=== PATIENT | female | born 1965 | race Caucasian/White ===

== ENCOUNTER 2025-06-08 23:13 | Inpatient (IN) | payer OTHER, SELFPAY ==
[2025-06-08 18:31] VITALS: BP 160/89
[2025-06-08 18:55] LABS: Hematocrit 44.2 % (37.0-47.0); Hemoglobin 15.1 g/dL (12.0-16.0); Mean Corp Hgb Conc. 34.2 g/dL (33.0-37.0); Mean Corpuscular Volume 85.8 fL (81.0-99.0); Nucleated Red Blood Cells % 0 %; Platelet Count 319 10^3/uL (130-400); Red Cell Dist. Width 12.0 % (11.5-14.5)
[2025-06-08 19:14] LABS: ALT (SGPT) 729 U/L (0-35); AST (SGOT) 288 U/L (14-36); Albumin 4.9 g/dl (3.5-5.0); Alkaline Phosphatase 277 U/L (38-126); Blood Urea Nitrogen 21 mg/dl (7-17); Calcium 9.7 mg/dl (8.4-10.2); Carbon Dioxide 29 mmol/L (22-30); Chloride 100 mmol/L (98-107); Glucose 124 mg/dl (70-99); Lipase 244 U/L (23-300); Potassium 4.0 mmol/L (3.5-5.1); Sodium 139 mmol/L (135-145); Total Protein 7.8 g/dl (6.3-8.2); eGFR > 60.00
[2025-06-08 19:24] LABS: Urine Squamous Cell >30 /LPF (Few); Urine White Cell 30-40 /HPF (0-5)
[2025-06-08 19:28] LABS: Urine Character Slightly Cloudy (Clear)
[2025-06-08 20:01] VITALS: BMI 30.3
--- NOTE | 2025-06-08 20:11 | ED.GENMED ---
History of Present Illness
<Mady Cowart PA-C - Last Filed: 06/09/25 01:25>
General
Chief Complaint: Abdominal Symptoms
Source: patient
Exam Limitations: none
Time Seen by Provider: 06/08/25 19:54
History of Present Illness
History of Present Illness:
60yoF with a history of prediabetes presenting for evaluation of abdominal pain. She reports pain in her right upper quadrant for the past 2 days which radiates to the right flank. Pain worsens after eating. Pain is described as sharp at times
which alternates to cramping. She has tried Tylenol without much relief. She is also experiencing nausea and vomiting. She has vomited about 4-5 times so far today. No history of similar pains in the past. Only other symptom is constipation.
She denies any fevers, chills, hematemesis, chest pain, shortness of breath, dysuria. Patient started taking Zepbound and started a carnivore diet several months ago. Prior abdominal surgeries include multiple section, a hysterectomy, and
an abdominoplasty.
Past History
<Mady Cowart PA-C - Last Filed: 06/09/25 01:25>
Past History
ED Past Medical History: Psychiatric (anxiety)
ED Past Surgical History: and Other (abdominplasty)
Social History
Tobacco: Non-smoker
Phy Exam
<Mady Cowart PA-C - Last Filed: 06/09/25 01:25>
General Physical Exam
General Presentation: well appearing and no apparent distress
General Skin: warm and dry
General Habitus: normal
General Mental: alert
ENT Exam
ENT Exam: normocephalic
Cardiovascular Exam
Cardiovascular Exam: regular rate/rhythm
Pulmonary Exam
Pulmonary Exam: lungs clear, no respiratory distress, no rales, no crackles, no rhonchi and no wheezing
Gastrointestinal Exam
Gastrointestinal Exam: soft, non distended and other (+Focal tenderness in RUQ. Abdomen soft. No rebound or guarding.)
Neurological Exam
Neurological Exam: alert
[place] Coma Scale
Eye Opening: Spontaneous
Verbal Response: Oriented
Motor Response: Obeys Commands
GCS Total Score: 15
Skin Exam
Skin Exam: normal color and warm/dry
Psychiatric Exam
Psychiatric Exam: normal mood/affect
Course
<Mady Cowart PA-C - Last Filed: 06/09/25 01:25>
Orders/Labs/Results
Orders:
Orders
06/08/25 18:44
Complete Blood Count/With Diff Urgent
Comprehensive Metabolic Panel Urgent
Lipase Urgent
Urinalysis Reflex To Culture Urgent
Date Specimen was Collected: 06/08/25
Time Specimen was Collected: 18:35
Urine Microscopic Reflex Cult Urgent
Urine Culture Urgent
BE Source: U
Specimen Description:
Date Specimen was Collected: 06/08/25
Time Specimen was Collected: 18:35
06/08/25 20:10
0.9% Sodium Chloride 1000 ml [Nss] 1,000 ml IV BOLUS
HYDROmorphone [Dilaudid] 0.5 mg IV NOW STA
Ondansetron Injectable [Zofran] 4 mg IV NOW STA
US Abdomen Complete/Upper Urgent
Comment:
Reason For Exam: RUQ pain, transaminitis
06/08/25 20:17
Prothrombin Time Urgent
06/08/25 22:16
Piperacillin/Tazo 4.5 Gram [Zosyn] 4.5 gram in 100 ml IV NOW
06/08/25 22:52
Admit/Transfer Patient As Directed
Co-Sign Provider:
Level of Care: Inpatient admission
Assign to:: Medical/Surgical
Physician / Group: andrey
Diagnosis: choledocholithiasis
Reason for Hospitalization: choledocholithiasis
Expected length of stay greater than two midnights?: Yes
ELOS- Estimated Length of Stay in days: 3
I certify the patient meets the requirements for IP care: Yes
Code Status As Directed
Resuscitation Status: Full Code
PRN Pain Medication Management As Directed
May give lesser potent ordered pain med per pt: Yes
preference::
Protocol:: Medication orders for pain may be administered in a
manner that supports deferring to patient preference
when the pt is:
- Requesting an ordered lesser potent pain medication.
Least to most potent pain medications are defined
as: acetaminophen < NSAID < tramadol < opioids
(morphine, oxycodone, hydromorphone).
- Requesting a lesser dose of the same medication IF
ORDERED.
- Requesting a less intrusive route of administration
if both routes are prescribed by the provider (PO <
IV).
06/08/25 22:57
Consult Notification Routine
Specialty to Notify: Gastroenterology
GASTROINTESTINAL CONSULT Routine
Consulting Provider: Salome Delgado
Was physician already notified: No
Reason for consult: choledochlohtiasis
SURGICAL CONSULT Routine
Consulting Provider: Ravin Torres
Was physician already notified: No
Reason for consult: choledocholithiasis
06/08/25 22:58
Consult Notification Routine
Specialty to Notify: Surgical
06/08/25 23:57
0.9% Sodium Chloride 1000 ml [Nss] 1,000 ml IV 100 mls/hr
HYDROmorphone [Dilaudid] 0.5 mg IV Q4HPRN PRN
Ondansetron Injectable [Zofran] 4 mg IV Q6HPRN PRN
06/08/25 23:57
EKG [Electrocardiogram (*1)] Routine
Reason for Study: QTc Monitoring
Activity As Directed
Activity Level: As Tolerated
Vital Signs As Directed
Frequency: Per unit guidelines
DX Deep Vein Thrombosis Video Routine
06/09/25 Breakfast
NPO
Allow oral meds: Yes
Allow clear liquids: No
Complete Blood Count/No Diff IN AM
Comprehensive Metabolic Panel IN AM
06/09/25 18:00
Enoxaparin Sodium [Lovenox] 40 mg SC QPM
06/10/25 04:00
Piperacillin/Tazo 3.375 Gram [Zosyn] 3.375 gram in 50 ml IV Q6H
06/10/25 06:00
Complete Blood Count/No Diff IN AM
Comprehensive Metabolic Panel IN AM
06/11/25 06:00
Complete Blood Count/No Diff IN AM
Comprehensive Metabolic Panel IN AM
06/12/25 06:00
Complete Blood Count/No Diff IN AM
Comprehensive Metabolic Panel IN AM
06/13/25 06:00
Comprehensive Metabolic Panel IN AM
Abnormal Lab Results
06/08/25
18:44
BUN 21 H mg/dl
(7-17)
Glucose 124 H mg/dl
(70-99)
Total Bilirubin 2.0 H mg/dl
(0.2-1.3)
AST 288 H U/L
(14-36)
ALT 729 H* U/L
(0-35)
Alkaline Phosphatase 277 H U/L
(38-126)
Urine Ketones 3+ A
(Negative)
Ur Occult Blood Reflex 2+ A
(Negative)
Leukocyte Esterase Rfl 3+ A
(Negative)
Urine RBC 7-10 A /HPF
(0-2)
Urine WBC (Reflex) 30-40 A /HPF
(0-5)
Urine Bacteria (Reflex) Few A
(Negative)
Urine Albumin (Reflex) 2+ A
(Neg - Trace)
06/08/25 18:44
06/08/25 18:44
Vital Signs
Initial and Last Documented VS:
Initial Vital Signs
Temp Pulse Resp BP Pulse Ox
97.6 F 83 20 160/89 99
06/08/25 18:31 06/08/25 18:31 06/08/25 18:31 06/08/25 18:31 06/08/25 18:31
Last Documented Vital Signs
Temp Pulse Resp BP Pulse Ox
98.2 F 74 16 118/66 95
06/09/25 00:05 06/09/25 00:05 06/09/25 00:05 06/09/25 00:05 06/09/25 00:05
<Markos Long, DO - Last Filed: 06/08/25 21:58>
Orders/Labs/Results
Orders:
Orders
06/08/25 18:44
Complete Blood Count/With Diff Urgent
Comprehensive Metabolic Panel Urgent
Lipase Urgent
Urinalysis Reflex To Culture Urgent
Date Specimen was Collected: 06/08/25
Time Specimen was Collected: 18:35
Urine Microscopic Reflex Cult Urgent
Urine Culture Urgent
BE Source: U
Specimen Description:
Date Specimen was Collected: 06/08/25
Time Specimen was Collected: 18:35
06/08/25 20:10
0.9% Sodium Chloride 1000 ml [Nss] 1,000 ml IV BOLUS
HYDROmorphone [Dilaudid] 0.5 mg IV NOW STA
Ondansetron Injectable [Zofran] 4 mg IV NOW STA
US Abdomen Complete/Upper Urgent
Comment:
Reason For Exam: RUQ pain, transaminitis
06/08/25 20:17
Prothrombin Time Urgent
06/08/25 22:16
Piperacillin/Tazo 4.5 Gram [Zosyn] 4.5 gram in 100 ml IV NOW
06/08/25 22:52
Admit/Transfer Patient As Directed
Co-Sign Provider:
Level of Care: Inpatient admission
Assign to:: Medical/Surgical
Physician / Group: andrey
Diagnosis: choledocholithiasis
Reason for Hospitalization: choledocholithiasis
Expected length of stay greater than two midnights?: Yes
ELOS- Estimated Length of Stay in days: 3
I certify the patient meets the requirements for IP care: Yes
Code Status As Directed
Resuscitation Status: Full Code
PRN Pain Medication Management As Directed
May give lesser potent ordered pain med per pt: Yes
preference::
Protocol:: Medication orders for pain may be administered in a
manner that supports deferring to patient preference
when the pt is:
- Requesting an ordered lesser potent pain medication.
Least to most potent pain medications are defined
as: acetaminophen < NSAID < tramadol < opioids
(morphine, oxycodone, hydromorphone).
- Requesting a lesser dose of the same medication IF
ORDERED.
- Requesting a less intrusive route of administration
if both routes are prescribed by the provider (PO <
IV).
06/08/25 22:57
Consult Notification Routine
Specialty to Notify: Gastroenterology
GASTROINTESTINAL CONSULT Routine
Consulting Provider: Salome Delgado
Was physician already notified: No
Reason for consult: choledochlohtiasis
SURGICAL CONSULT Routine
Consulting Provider: Ravin Torres
Was physician already notified: No
Reason for consult: choledocholithiasis
06/08/25 22:58
Consult Notification Routine
Specialty to Notify: Surgical
06/08/25 23:57
0.9% Sodium Chloride 1000 ml [Nss] 1,000 ml IV 100 mls/hr
HYDROmorphone [Dilaudid] 0.5 mg IV Q4HPRN PRN
Ondansetron Injectable [Zofran] 4 mg IV Q6HPRN PRN
06/08/25 23:57
EKG [Electrocardiogram (*1)] Routine
Reason for Study: QTc Monitoring
Activity As Directed
Activity Level: As Tolerated
Vital Signs As Directed
Frequency: Per unit guidelines
DX Deep Vein Thrombosis Video Routine
06/09/25 Breakfast
NPO
Allow oral meds: Yes
Allow clear liquids: No
Complete Blood Count/No Diff IN AM
Comprehensive Metabolic Panel IN AM
06/09/25 18:00
Enoxaparin Sodium [Lovenox] 40 mg SC QPM
06/10/25 04:00
Piperacillin/Tazo 3.375 Gram [Zosyn] 3.375 gram in 50 ml IV Q6H
06/10/25 06:00
Complete Blood Count/No Diff IN AM
Comprehensive Metabolic Panel IN AM
06/11/25 06:00
Complete Blood Count/No Diff IN AM
Comprehensive Metabolic Panel IN AM
06/12/25 06:00
Complete Blood Count/No Diff IN AM
Comprehensive Metabolic Panel IN AM
06/13/25 06:00
Comprehensive Metabolic Panel IN AM
Abnormal Lab Results
06/08/25
18:44
BUN 21 H mg/dl
(7-17)
Glucose 124 H mg/dl
(70-99)
Total Bilirubin 2.0 H mg/dl
(0.2-1.3)
AST 288 H U/L
(14-36)
ALT 729 H* U/L
(0-35)
Alkaline Phosphatase 277 H U/L
(38-126)
Urine Ketones 3+ A
(Negative)
Ur Occult Blood Reflex 2+ A
(Negative)
Leukocyte Esterase Rfl 3+ A
(Negative)
Urine RBC 7-10 A /HPF
(0-2)
Urine WBC (Reflex) 30-40 A /HPF
(0-5)
Urine Bacteria (Reflex) Few A
(Negative)
Urine Albumin (Reflex) 2+ A
(Neg - Trace)
06/08/25 18:44
06/08/25 18:44
Vital Signs
Initial and Last Documented VS:
Initial Vital Signs
Temp Pulse Resp BP Pulse Ox
97.6 F 83 20 160/89 99
06/08/25 18:31 06/08/25 18:31 06/08/25 18:31 06/08/25 18:31 06/08/25 18:31
Last Documented Vital Signs
Temp Pulse Resp BP Pulse Ox
98.2 F 74 16 118/66 95
06/09/25 00:05 06/09/25 00:05 06/09/25 00:05 06/09/25 00:05 06/09/25 00:05
Claritalt;Mady Cowart PA-C - Last Filed: 06/09/25 01:25>
MDM/Problems Addressed
Differential Diagnosis Includes:
60yoF here with RUQ pain x 2 days. Radiates to R flank. Associated with n/v. Worse after eating. She is well-appearing in no distress. She is hypertensive in triage with otherwise stable vital signs. There is focal tenderness in the right upper
quadrant on exam without signs of peritonitis. Differential diagnosis includes but is not limited to: Biliary colic, cholecystitis, pancreatitis
Initial ED plan: Workup initiated in triage. Significant transaminitis noted with AST 288, ALT 729, and total bilirubin of 2.0. Lipase and white count within normal limits. UA with 30-40 WBCs although >30/LPF presenting suggesting contaminated
sample. Upper abdominal ultrasound ordered. IV Dilaudid, Zofran, and fluid bolus for symptoms.
<Mady Cowart PA-C - Last Filed: 06/09/25 01:25>
*Pulse Oximetry
SaO2: 99
Patient hypoxic: no
*Critical Care Note
Total Time (30-74mins, 75-104mins- exclusive of procedures): Not Applicable
<Mady Cowart PA-C - Last Filed: 06/09/25 01:25>
Update Note
Update Note:
Ultrasound shows severe intrahepatic and extrahepatic biliary dilatation with cholelithiasis and gallbladder distention. Presentation concerning for choledocholithiasis. IV Zosyn ordered and patient admitted for further management.
ED Attending Note
<Mady Cowart PA-C - Last Filed: 06/09/25 01:25>
-
Portions of this chart may have been created with voice recognition software.� Occasional wrong word or��sound alike� substitutions may have occurred due to the inherent limitations of voice recognition software.
<Markos Long DO - Last Filed: 06/08/25 21:58>
ED Attending Note
Patient seen and examined by attending physician: Yes
I performed the substantive portion of visit, reviewed & personally made and approve the management plan that is documented in note by myself or ERNESTINA.: Yes
ED Attending Note:
Seen with PA examined independently 60-year-old female on a GLP abdominal pain nausea vomiting LFTs looks like gallstones on her ultrasound lipase noted
Discharge Plan
Departure
Patient Disposition: Admit
Date of Disposition: 06/08/25
Time of Disposition: 22:18
Presentation/result/management discussed w/ accepting MD/DO: Hospitalist
Discharge Problem:
Cholelithiasis, Dilation of biliary tract, Transaminitis
Interventions
Interventions:
*Risk Screen - Suicide Last Done: 06/09/25 00:04
*General Assessment Last Done: 06/08/25 18:31
*Neglect/Abuse Screening Last Done: 06/08/25 18:31
*ED- Fall Risk Assessment Last Done: 06/08/25 20:01
*ED COVID-19 Vaccine History Last Done: 06/09/25 00:04
*ED Influenza Vaccine History Last Done: 06/08/25 20:01
*Nursing Disposition Last Done: 06/08/25 23:50
VR-Opcrsq-Burzbfrlne Assessment Last Done: 06/08/25 20:01
ED-Female Genitourinary Assessment Last Done: 06/08/25 20:01
Discharge Date and Time
Discharge Date/Time: 06/08/25 23:51
[2025-06-08] MEDS: NSS 1000 IV (20:20)
[2025-06-08] MEDS: ZOFRAN 4 MG IV (20:21)
[2025-06-08] MEDS: DILAUDID 0.5 MG IV (20:22)
[2025-06-08 20:47] LABS: INR 1.05; PT 14.0 Sec (11.4-14.6)
[2025-06-08] MEDS: ZOSYN 100 IV (22:21)
--- NOTE | 2025-06-08 22:35 | HPS.HSE ---
Addendum entered and electronically signed by Sri Camara MD 06/08/25 23:15:
This is an addendum to H&P written by Elvira Bailey on 06/08/2025. �Patient seen and examined independently with EMERGENCY DEPARTMENT.
60-year-old female past medical history of prediabetes, anxiety, obesity, presenting for abdominal pain right upper quadrant for 2 days radiating to right flank worse after eating. �Also nausea and vomiting and constipation. �No fevers or chills.
No bowel movement in 1 week not abnormal for her.�
Vital signs show blood pressure 160.
Labs show AST up to 200s, ALT 700s, bilirubin of 2.
Abdominal ultrasound shows severe intrahepatic and extrahepatic biliary dilatation likely secondary to obstructing choledocholithiasis. �There is cholelithiasis, gallbladder distention, mild diffuse gallbladder wall thickening. �There is moderate to
severe increasing echogenicity throughout the liver suggesting diffuse liver disease probably hepatic steatosis.
Patient with acute choledocholithiasis. �N.p.o., IV fluids, Zosyn, Zofran/Dilaudid, GI, general surgery consulted.
Original Note:
Family Physician
-
Family Physician: Jesus Manuel Thompson
Chief Complaint
-
abdominal pain
History of Present Illness
60yoF with a history of prediabetes presenting for evaluation of abdominal pain She reports pain in her right upper quadrant radiating to the back since Sunday. the pain was after eating. she was also vomiting after eating. today the pain was
constant and she was vomiting.she was taking Tylenol with no relief in her symptoms. she has issues with constipation. she does not remember last time she moved her bowels. she can go a week without moving bowels. denied RAYMUNDO,dizzy or syncope. denied
fever, chest pain, sob.denied dysuria or hematuria.
patient was on Ozempic for 8 months and changed to Zepbound for past three months. stated 15lbs weight loss since February.
patient received a dose of Dilaudid, Zofran and Zosyn in ER. admitting for further management.
Medical History
Past Medical History
Past Medical History: Reports Other
Additional Past Medical History:
pre DM
Past Surgical History: Reports Other
Additional Past Surgical History:
hyxterectomy
Social History
Tobacco: Smoker
Alcohol: None
Drug: None
Personal:
Living: With Family
Family History
Family History: Not pertinent
Allergies / Home Medications
Allergies reflects when Allergies were last updated in [facility].
Home Medications with original date entered in [facility]
Allergy/Medication List:
Allergies
Allergy/AdvReac Type Severity Reaction Status Date / Time
No Known Allergies Allergy Verified 06/08/25 18:35
Home Medications
norethindrone acetate 5 mg tablet (Aygestin) 10 mg (2 x 5 mg) PO DAILY ##14 09/21/21
Review of Systems
-
Constitutional: Reports No Symptoms
EENT: Reports No Symptoms
Respiratory: Reports No Symptoms
Cardiac: Reports No Symptoms
Abdomen/GI: Reports Abdominal Pain, Nausea, Vomiting and Constipated
: Reports No Symptoms
Musculoskeletal: Reports No Symptoms
Skin: Reports No Symptoms
Neurological: Reports No Symptoms
Endocrine: Reports No Symptoms
Hematologic/Lymphatic: Reports No Symptoms
Psych: Reports No Symptoms
Physical Exam
Vital Signs
Vital Signs
Temp Pulse Resp BP Pulse Ox
97.6 F 83 20 160/89 99
06/08/25 18:31 06/08/25 18:31 06/08/25 18:31 06/08/25 18:31 06/08/25 20:12
Physical Exam
General: Well Developed, Well Nourished and No Apparent Distress
HEENT: NormoCephalic, Moist mucous membranes and Atraumatic
Respiratory: Clear
Cardiac: S1/S2 and Regular Rhythm; No Murmur or Rub
GI: Soft, Non Tender, Non Distended and Normal Bowel Sounds; No Organomegaly
Rectal: Deferred by Provider
Musculoskeletal: No Clubbing, No Cyanosis and No Edema
Skin: No Rash
Neuro: AO x 3 and Nonfocal/grossly intact
Psych: Calm
Laboratory Results
-
06/08/25 18:44
06/08/25 18:44
Laboratory Results
PT 14.0 Sec (11.4-14.6) 06/08/25 20:17
INR 1.05 06/08/25 20:17
Total Bilirubin 2.0 mg/dl (0.2-1.3) H 06/08/25 18:44
AST 288 U/L (14-36) H 06/08/25 18:44
ALT 729 U/L (0-35) H* 06/08/25 18:44
Alkaline Phosphatase 277 U/L (38-126) H 06/08/25 18:44
Lipase 244 U/L (23-300) 06/08/25 18:44
Data Reviewed
-
CT Scan: Report Reviewed by me
Lab Data: Labs Reviewed by me
Impression/Plan
-
#suspect choledocholithiasis
-ast 288,alt 729, Tbili 2.0
-US with the impression of SEVERE INTRAHEPATIC and EXTRAHEPATIC BILIARY DILATATION which is likely secondary to obstructing choledocholithiasis.
2. CHOLELITHIASIS, gallbladder distention, and mild diffuse gallbladder wall thickening.
3. Moderate to severely increased echogenicity throughout the liver suggesting diffuse liver disease (probably diffuse hepatic steatosis).
4. Mild chronic bilateral renal disease.
-iv Zosyn
-keep NPO
-Dilaudid prn for pain, Zofran prn for n/v
-GI and surgery consulted
#Prediabetes
#DVT prophylaxis
-Lovenox
#CODE status
-full code
-
[2025-06-09] VITALS (10 sets, daily range): BP systolic 87–134; BP diastolic 57–86; BMI 30.5
--- NOTE | 2025-06-09 | PTCARENOTE ---
Received patient from ED. pt able to ambulate from stretcher to bed. patient assessed and vital signs obtained. See flowsheets. patient AOx3, call salguero within reach, plan of care reviewed. PRN pain medicine given as ordered, see MAR.
[2025-06-09] MEDS: NSS 1000 IV ×3 (00:18→22:59)
[2025-06-09] MEDS: DILAUDID 0.5 MG IV ×5 (00:19→23:44)
--- NOTE | 2025-06-09 08:06 | CON.GI ---
Addendum entered and electronically signed by Shila Thomas DO 06/09/25 11:42:
The patient was seen and examined by me independently in collaboration with the nurse practitioner.
Past medical history/social history/medications/allergies/family history reviewed.
Lab data and imaging data reviewed.
Briefly, 60 y.o. female hx pmhx hysterectomy, history of ozempic use now on zepbound admitted with abdominal pain found to have elevated LFTs, Tbili 2, AST 288, ALT 729, alk phos 277, lipase 244. Abdominal US shows cholelithiasis, GB wall thickening
and distension, fatty liver and intrahepatic and extrahepatic biliary ductal dilation w/ CBD dilation of 1.0 cm.
Currently, patient is asymptomatic, abdominal pain has resolved.
A/P: Symptomatic cholelithiasis c/b choledocholithiasis
-NPO for EUS/ERCP with Dr. Durán
-c/w Zosyn
-IVF
-Surgery following, eventual cholecystectomy following EUS/ERCP, timing TBD
Original Note:
Consultation
-
Date/Time Consultation Requested: 06/08/25 2250
Date/Time Consultation Performed: 06/09/25 0800
Requesting Provider: YEIMY Edwards
Performing Provider: YEIMY Cardona, Maribell Thomas DO
Reason for Consultation: abdominal pain increased LFT's
Medical History
Chief Complaint / HPI
Chief Complaint: abdominal pain
History of Present Illness:
Pt is a 60yo with hx pre DM, , tummy tuck, hysterectomy with prior Oxempic use for 8 month then change to Zepound with 15 lbs wt loss since February presents with onset of abdominal pain. On admission noted with bili 2, AST 288, ALT 729, alk
phos 277 and lipase 244. US with SEVERE INTRAHEPATIC and EXTRAHEPATIC BILIARY DILATATION which is likely secondary to obstructing choledocholithiasis. CHOLELITHIASIS, gallbladder distention, and mild diffuse gallbladder wall thickening. Moderate
to severely increased echogenicity throughout the liver suggesting diffuse liver disease (probably diffuse hepatic steatosis). Mild chronic bilateral renal disease.
In review with patient no hx pain in past. She began with symptoms on Sunday and progressed to 8/10 on 06/08. She is now with some improvement with pain meds. Pain is right upper abdomen. She also admits to nausea with vomiting and denies
diarrhea, constipation, blood or black in stools. No change in urine or stool color. No anticoagulation or NSAID use.
Past Medical History
Past Surgical History: and Other (hysterectomy, tummy tuck)
Social History
Tobacco: Former Smoker (quit 10 years ago )
Alcohol: Former (former social weekend ETOH )
Drug: None
Personal:
Living: With Family
Employment: Employed
Family History
Family History: Other (no family hx GI issues )
Allergies / Home Medications
Allergy/AdvReac Type Severity Reaction Status Date / Time
No Known Allergies Allergy Verified 06/08/25 18:35
�Medication �Instructions �Recorded
norethindrone acetate 5 mg tablet 10 mg (2 x 5 mg) PO DAILY ##14 09/21/21
(Aygestin)
Review of Systems
-
History Source: Patient
Constitutional: Reports Weight Loss (15 lbs with Zepbound)
EENT: Reports No Symptoms
Respiratory: Reports No Symptoms
Cardiac: Reports No Symptoms
Abdomen/GI: Reports Abdominal Pain, Nausea and Vomiting
: Reports No Symptoms
Musculoskeletal: Reports No Symptoms
Skin: Reports No Symptoms
Neurological: Reports Headache
Endocrine: Reports No Symptoms
Hematologic/Lymphatic: Reports No Symptoms
Vital Signs
Temp Pulse Resp BP Pulse Ox
98.2 F 74 16 118/66 95
06/09/25 00:05 06/09/25 00:05 06/09/25 00:05 06/09/25 00:05 06/09/25 00:05
Physical Exam
Exam
General: Well Developed, Well Nourished and No Apparent Distress
HEENT: Normocephalic, Anicteric and Moist Mucous Membranes
Respiratory: Clear
Cardiac: Regular Rhythm
GI: Soft, Non Distended and Tender (RUQ)
Musculoskeletal: No Clubbing and No Cyanosis
Skin: Warm and Dry
Neuro: Awake, Alert and AO x 3
Psych: Calm
Results
WBC 7.8 10^3/uL (4.8-10.8) 06/08/25:
Hgb 15.1 g/dL (12.0-16.0) 06/08/25:
Hct 44.2 % (37.0-47.0) 06/08/25:
MCV 85.8 fL (81.0-99.0) 06/08/25:
Plt Count 319 10^3/uL (130-400) 06/08/25:
Absolute Neuts (auto) 5.6 10^3/uL (1.4-6.5) 06/08/25:
PT 14.0 Sec (11.4-14.6) 06/08/25:
INR 1.05 06/08/25:17
Sodium 139 mmol/L (135-145) 06/08/25:
Potassium 4.0 mmol/L (3.5-5.1) 06/08/25:
Chloride 100 mmol/L (98-107) 06/08/25:
Carbon Dioxide 29 mmol/L (22-30) 06/08/25:
BUN 21 mg/dl (7-17) H 06/08/25
Creatinine 1.0 mg/dL (0.6-1.0) 06/08/25:
Calcium 9.7 mg/dl (8.4-10.2) 06/08/25:
Total Bilirubin 2.0 mg/dl (0.2-1.3) H 10/20/25 18:44
AST 288 U/L (14-36) H 06/08/25 18:44
ALT 729 U/L (0-35) H* 06/08/25 18:44
Alkaline Phosphatase 277 U/L (38-126) H 06/08/25 18:44
Lipase 244 U/L (23-300) 06/08/25 18:44
Diagnostic Image Results:
06/08- US abdomen
1. SEVERE INTRAHEPATIC and EXTRAHEPATIC BILIARY DILATATION which is likely secondary to obstructing choledocholithiasis.
2. CHOLELITHIASIS, gallbladder distention, and mild diffuse gallbladder wall thickening.
3. Moderate to severely increased echogenicity throughout the liver suggesting diffuse liver disease (probably diffuse hepatic steatosis).
4. Mild chronic bilateral renal disease.
Prior GI Procedures:
EGD: none
Colonoscopy: 2 years ago recalls normal
Assessment / Plan
-
Pt is a 60yo with hx pre DM, , tummy tuck, hysterectomy with prior Oxempic use for 8 month then change to Zepound with 15 lbs wt loss since February presents with onset of abdominal pain. On admission noted with bili 2, AST 288, ALT 729, alk
phos 277 and lipase 244. US with SEVERE INTRAHEPATIC and EXTRAHEPATIC BILIARY DILATATION which is likely secondary to obstructing choledocholithiasis. CHOLELITHIASIS, gallbladder distention, and mild diffuse gallbladder wall thickening. Moderate
to severely increased echogenicity throughout the liver suggesting diffuse liver disease (probably diffuse hepatic steatosis). Mild chronic bilateral renal disease. In review with patient no hx pain in past. She began with symptoms on Sunday
and progressed to 03/29 on 06/08. She is now with some improvement with pain meds. Pain is right upper abdomen. She also admits to nausea with vomiting. No anticoagulation or NSAID use.
-abdominal pain with increased LFT's
-US concern for likely choledocholithiasis
-cholelithiasis , GB distention and thickening
-cholelithiasis
-recent Ozempic then Zepbound use
other med problems:
pre DM, , tummy tuck, hysterectomy
fatty liver per imaging
PLAN:
Etiology of symptoms related to CBD stone vs other
plan for EUS +/- ERCP today - reviewed risk/benefit with patient agreeable to proceed
NPO
last Zepound 1 week ago
trend labs
for surgical eval
hold lovenox and add compression stocking
currently on antibiotics
OP follow up for fatty liver
-
-
Thank you for consultation and allowing me to participate in the patient's care. Please call the information assurance analyst GI physician during the after hours with any questions or concerns.
[2025-06-09 08:10] LABS: ALT (SGPT) 584 U/L (0-35); AST (SGOT) 268 U/L (14-36); Albumin 3.5 g/dl (3.5-5.0); Alkaline Phosphatase 201 U/L (38-126); Blood Urea Nitrogen 14 mg/dl (7-17); Calcium 8.6 mg/dl (8.4-10.2); Carbon Dioxide 28 mmol/L (22-30); Chloride 106 mmol/L (98-107); Estimated Creatinine Clearance 75 ml/min; Glucose 88 mg/dl (70-99); Potassium 3.7 mmol/L (3.5-5.1); Sodium 135 mmol/L (135-145); Total Protein 6.0 g/dl (6.3-8.2); eGFR > 60.00
--- NOTE | 2025-06-09 08:11 | W.PN.HOSP.TC ---
Today's Communication/Plan
-
NPO for ERCP/EUS
cont pain control
monitor LFTs
cont abx
Assessment / Plan
Assessment / Plan
Physical Exam
General: No acute distress, appears comfortable at this time
HEENT: NormoCephalic, Moist mucous membranes and Atraumatic
Respiratory: Clear
Cardiac: S1/S2 and Regular Rhythm; No Murmur or Rub
GI: Soft, Non Tender, Non Distended and Normal Bowel Sounds; No Organomegaly
Musculoskeletal: No Clubbing, No Cyanosis and No Edema
Skin: No Rash
Neuro: AO x 3 conversant coherent
Psych: Calm
60F prediabetes obesity p/w severe abd pain RUQ radiating to back started after eating with associate nausea vomiting. Abd US concerning for biliary obstruction Cholelithiasis.
#acute biliary obstruction choledocholithiasis
-transaminitis improving
-US with the impression of SEVERE INTRAHEPATIC and EXTRAHEPATIC BILIARY DILATATION which is likely secondary to obstructing choledocholithiasis.
2. CHOLELITHIASIS, gallbladder distention, and mild diffuse gallbladder wall thickening.
3. Moderate to severely increased echogenicity throughout the liver suggesting diffuse liver disease (probably diffuse hepatic steatosis).
4. Mild chronic bilateral renal disease.
-iv Zosyn
-NPO for ERCP/EUS today 06/09
-Dilaudid prn for pain, Zofran prn for n/v
-GI and surgery consults appreciated
Prediabetes
DVT prophylaxis
-Lovenox
CODE status
-full code
I spent a total of 40 minutes with the patient or on the floor. More than 50% of this time involved counseling and coordination of care.
Anticipated Discharge: 24 - 48 hours
Subjective/Interval History
-
Date of Service: June 09, 2025
Seen and examined at bedside in no acute distress, resting comfortably in bed. Overall reports feeling well. Pain well conrolled at time of evaluation
Objective Data
-
Labs:
Laboratory Results
06/08/25 06/09/25
20:17 06:55
WBC Pending
Hgb Pending
Hct Pending
Plt Count Pending
PT 14.0
INR 1.05
Sodium 135
Potassium 3.7
Chloride 106
Carbon Dioxide 28
BUN 14
Creatinine 0.9
Glucose 88
Calcium 8.6
Total Bilirubin 2.0 H
AST 268 H
ALT 584 H*
Alkaline Phosphatase 201 H
Vital Signs:
Vital Signs
Temp Pulse Resp BP Pulse Ox
98.2 F 74 16 118/66 95
06/09/25 00:05 06/09/25 00:05 06/09/25 00:05 06/09/25 00:05 06/09/25 00:05
I&O
06/08/25 06/09/25 06/10/25
06:59 06:59 06:59
Intake Total 600 / 600
Balance 600 / 600
[2025-06-09 08:33] LABS: Hematocrit 36.8 % (37.0-47.0); Hemoglobin 12.6 g/dL (12.0-16.0); Mean Corp Hgb Conc. 34.2 g/dL (33.0-37.0); Mean Corpuscular Volume 86.0 fL (81.0-99.0); Platelet Count 240 10^3/uL (130-400); Red Cell Dist. Width 11.9 % (11.5-14.5)
--- NOTE | 2025-06-09 10:22 | CON.GS ---
Medical History
-
Chief Complaint: Abdominal pain
History of Present Illness:
Patient is a 60 yo F with a PMH of obesity (on GLP-1 inhibitor), s/p , s/p hysterectomy, and s/p abdominoplasty who presents with 3 to 4 days of abdominal pain and discomfort. Mr. Madrigal states that her symptoms began on Sunday with
epigastric and RIGHT sided abdominal discomfort radiating to her back. She has been on a high-protein high fat diet. Associated nausea and vomiting. She denies any pale stools or jaundice. She does report darker urine. She denies any prior
episodes or attacks of similar discomfort.
Past Medical History
Past Surgical History: , Gynecological (Hysterectomy) and Other (Abdominoplasty)
Social History
Tobacco: Former Smoker
Alcohol: Occasional (Social)
Drug: None
Personal:
Living: With Family
Family History
Family History: Reviewed & Not Pertinent
Allergies / Home Medications
Allergy/AdvReac Type Severity Reaction Status Date / Time
No Known Allergies Allergy Verified 06/08/25 18:35
�Medication �Instructions �Recorded �Confirmed �Type
norethindrone acetate 5 mg tablet 10 mg (2 x 5 mg) PO DAILY ##14 09/21/21 Rx
(Aygestin)
Review of Systems
-
A 10 point review of systems was completed, and was negative except as per HPI.
Physical Exam
Vital Signs
Temp Pulse Resp BP Pulse Ox
98.4 F 65 18 111/62 99
06/09/25 08:32 06/09/25 09:37 06/09/25 08:32 06/09/25 09:37 06/09/25 08:32
06/08/25 06/09/25 06/10/25
06:59 06:59 06:59
Actual Weight 88.178 kg
Body Mass Index (BMI) 30.5
Lab Results
06/09/25 06:55
06/09/25 06:55
WBC 5.0 10^3/uL (4.8-10.8) 06/09/25 06:55
Hgb 12.6 g/dL (12.0-16.0) 06/09/25 06:55
Hct 36.8 % (37.0-47.0) L 06/09/25 06:55
Plt Count 240 10^3/uL (130-400) D 06/09/25 06:55
Abs Immat Gran (auto) 0.0 10^3/uL (0-0.05) 06/08/25 18:44
Neutrophils % 71.0 % (42.2-75.2) 06/08/25 18:44
Physical Exam
General: Well Developed, Well Nourished and No Apparent Distress
HEENT: Scleral Icterus
Respiratory: Non Labored Respirations
Cardiac: Regular Rhythm
GI: Soft, Non Distended, Tender (Minimal tenderness in RIGHT mid abdomen), Incisions (Prior incisions well-healed), Obese and Other
Skin: Warm and Dry
Neuro: Nonfocal/Grossly Intact
Data Reviewed
-
Ultrasound: Image Personally Visualized and interpreted and Report Reviewed by me
Labs: Labs Reviewed by me
Assessment / Plan
-
Patient is a 60 yo M p/w symptomatic cholelithiasis and likely choledocholithiasis
The natural history and pathophysiology of biliary and stone disease was discussed. Anatomy was reviewed. Workup thus far including labs and ultrasound were reviewed. GI consult noted. Plan for EUS/ERCP today. Role of cholecystectomy in
preventing future episodes of biliary colic, cholecystitis, choledocholithiasis was discussed. We briefly discussed a MIS cholecystectomy. Timing TBD pending findings and recovery from GI procedure. All questions answered.
-- GI consult noted, plan for EUS/ERCP today
-- Timing of cholecystectomy reviewed
-- NPO PM for possible surgery tomorrow pending endoscopic findings and recovery
-- Abx: Zosyn
--- NOTE | 2025-06-09 14:32 | CM ---
Patient seen at bedside with
IA completed
GI consulted-EUS/ERCP
surgery consult
Patient lives in 2 story home with , 1 SULEMA, flight stairs to bed/bath
PLOF: independent
Denies DME
Denies vn/rehab
pcp: [facility]acy: [facility]
PLAN: Home, no needs anticipated when stable, CM to continue to follow
--- NOTE | 2025-06-09 18:43 | PTCARENOTE ---
183 Pt arrived from PACU from ERCP. VSS. IVF infusing
[2025-06-10] VITALS (12 sets, daily range): BP systolic 100–129; BP diastolic 54–77
--- NOTE | 2025-06-10 02:19 | DOWNTIME ---
There was a [employer] Client Access Tech Downtime on 06/10/2025 from 0100 to 06/10/2025 at 0215. Downtime documentation of patient's care, including medication administrations, has been reconciled in the electronic record per guidelines. Refer to the
patient's paper chart under the miscellaneous tab to see printed paper medication records and downtime forms.
[2025-06-10] MEDS: ZOSYN 50 IV ×3 (03:54→21:22)
[2025-06-10] MEDS: TYLENOL 650 MG PO (03:54)
[2025-06-10 07:21] LABS: Hematocrit 40.6 % (37.0-47.0); Hemoglobin 13.4 g/dL (12.0-16.0); Mean Corp Hgb Conc. 33.0 g/dL (33.0-37.0); Mean Corpuscular Volume 91.0 fL (81.0-99.0); Platelet Count 240 10^3/uL (130-400); Red Cell Dist. Width 12.3 % (11.5-14.5)
--- NOTE | 2025-06-10 07:42 | W.PN.GI.CBS2 ---
Today's Communication / Plan
-
s/p ERCP with biliary sphincterotomy and stone extraction. LFTs improving. Timing of cholecystectomy per surgery. GI will sign off, please call with questions.
Assessment / Plan
-
60 y.o. female hx pmhx hysterectomy, fatty liver on GLP-1, admitted with symptomatic cholelithiasis c/b choledocholithiasis
s/p ERCP with biliary sphincterotomy and stone extraction
Defer timing of cholecystectomy to surgery
LFTs improving
Outpatient f/u with PCP/GI for fatty liver
Subjective
Subjective
Date of Service: June 10, 2025
Patient seen in follow-up. Overall feels well, minimal abdominal discomfort. She is s/p ERCP yesterday with Dr. Durán, biliary sphincterotomy w/ stone extraction performed.
Objective
Data Reviewed
Laboratory Data:
Laboratory Results
06/10/25 06:27
Laboratory Results
PT 14.0 Sec (11.4-14.6) 06/08/25 20:17
INR 1.05 06/08/25 20:17
Total Bilirubin 2.0 mg/dl (0.2-1.3) H 06/09/25 06:55
AST 268 U/L (14-36) H 06/09/25 06:55
ALT 584 U/L (0-35) H* 06/09/25 06:55
Alkaline Phosphatase 201 U/L (38-126) H 06/09/25 06:55
Lipase 244 U/L (23-300) 06/08/25 18:44
Vital Signs and I&O:
Vital Signs
Temp Pulse Resp BP Pulse Ox
99.1 F 69 16 109/54 93
06/10/25 03:15 06/10/25 03:15 06/10/25 03:15 06/10/25 03:15 06/10/25 03:15
I&O
10/06/10/25 06/11/25
06:59 06:59 06:59
Intake Total 600 / 600 480 / 480
Balance 600 / 600 480 / 480
Physical Exam
Physical Exam
HEENT: Anicteric and Moist mucous membranes
GI: Soft, Non Distended, Tender (minimal tenderness to deep palpation in RUQ and epigastrium, no rebound or guarding) and Normal Bowel Sounds
[2025-06-10 07:50] LABS: ALT (SGPT) 430 U/L (0-35); AST (SGOT) 92 U/L (14-36); Albumin 3.8 g/dl (3.5-5.0); Alkaline Phosphatase 178 U/L (38-126); Blood Urea Nitrogen 8 mg/dl (7-17); Calcium 8.9 mg/dl (8.4-10.2); Carbon Dioxide 28 mmol/L (22-30); Chloride 105 mmol/L (98-107); Estimated Creatinine Clearance 75 ml/min; Glucose 91 mg/dl (70-99); Potassium 4.3 mmol/L (3.5-5.1); Sodium 136 mmol/L (135-145); Total Protein 6.4 g/dl (6.3-8.2); eGFR > 60.00
[2025-06-10] MEDS: NSS 1000 IV ×2 (08:17→23:02)
[2025-06-10] MEDS: DILAUDID 0.5 MG IV ×3 (08:22→23:02)
--- NOTE | 2025-06-10 13:11 | W.PN.HOSP.TC ---
Today's Communication/Plan
-
Cholecystectomy plan for tentative later today
Trend CMP
Pain control
Cont Fluids/antibiotics
Assessment / Plan
Assessment / Plan
Physical Exam
General: No acute distress, appears comfortable at this time
HEENT: NormoCephalic, Moist mucous membranes and Atraumatic
Respiratory: Clear
Cardiac: S1/S2 and Regular Rhythm; No Murmur or Rub
GI: Soft, Non Tender, Non Distended and Normal Bowel Sounds; No Organomegaly
Musculoskeletal: No Clubbing, No Cyanosis and No Edema
Skin: No Rash
Neuro: AO x 3 conversant coherent
Psych: Calm
60F prediabetes obesity p/w severe abd pain RUQ radiating to back started after eating with associate nausea vomiting. Abd US concerning for biliary obstruction Cholelithiasis.
# Symptomatic cholelithiasis/choledocholithiasis
-transaminitis improving
-iv Zosyn for now
-Status post EUS/ERCP with biliary sphincterotomy and stone extraction on 06/09/2025
-Dilaudid prn for pain, Zofran prn for n/v
-Plan for cholecystectomy per surgery likely later today. Postop diet per surgery.
Prediabetes
DVT prophylaxis
-Lovenox
CODE status
-full code
Anticipated Discharge: Within 24 hours
Subjective/Interval History
-
Date of Service: June 10, 2025
States some mild abdominal discomfort
Objective Data
-
Labs:
Laboratory Results
06/10/25
06:27
WBC 5.7
Hgb 13.4
Hct 40.6
Plt Count 240
Sodium 136
Potassium 4.3
Chloride 105
Carbon Dioxide 28
BUN 8
Creatinine 0.9
Glucose 91
Calcium 8.9
Total Bilirubin 1.5 H
AST 92 H
ALT 430 H
Alkaline Phosphatase 178 H
Vital Signs:
Vital Signs
Temp Pulse Resp BP Pulse Ox
98.1 F 66 12 100/56 96
06/10/25 11:29 06/10/25 11:29 06/10/25 11:29 06/10/25 11:29 06/10/25 11:29
I&O
06/09/25 06/10/25 06/11/25
06:59 06:59 06:59
Intake Total 600 / 600 480 / 480 50 / 50
Balance 600 / 600 480 / 480 50 / 50
--- NOTE | 2025-06-10 14:32 | CM ---
CM following re: discharge planning.
Reviewed pt's chart, met with pt.
Per chart review, Cholecystectomy plan for tentative later today, continue supportive care.
Patient lives with in 2 story home and pt is independent in all areas [employer].
D/C plan: home with anticipated no needs.
CM will follow with discharge plan updates as hospitalization progresses
--- NOTE | 2025-06-10 14:35 | PTCARENOTE ---
Telephone report given to NATURAL SCIENCE MANAGER Portillo @14:35, Portillo stated he would call for transport; completed 2nd set of CHG wipes and nasal swap, transported from [facility] in bed.
--- NOTE | 2025-06-10 15:10 | W.SUR.PREOP ---
Pre-Operative Surgical Note
-
I have examined this patient prior to the performance of the scheduled procedure.
The patient's condition is unchanged from the time of the current History and
Physical and the patient is able to undergo the scheduled procedure.
[2025-06-10] MEDS: ZOSYN IV (16:00)
--- NOTE | 2025-06-10 18:05 | PTCARENOTE ---
Telephone report received from E D TECH Stephanie; patient returned in bed @18:05; VSS.
[2025-06-10] MEDS: TORADOL 15 MG IV (20:41)
[2025-06-11 03:06] VITALS: BP 100/58
[2025-06-11] MEDS: ZOSYN 50 IV ×2 (04:30→09:57)
[2025-06-11] MEDS: NSS IV (04:35)
[2025-06-11 07:18] LABS: Hematocrit 39.0 % (37.0-47.0); Hemoglobin 13.2 g/dL (12.0-16.0); Mean Corp Hgb Conc. 33.8 g/dL (33.0-37.0); Mean Corpuscular Volume 85.9 fL (81.0-99.0); Platelet Count 249 10^3/uL (130-400); Red Cell Dist. Width 11.9 % (11.5-14.5)
[2025-06-11 07:30] VITALS: BP 133/75
[2025-06-11 07:45] LABS: ALT (SGPT) 323 U/L (0-35); AST (SGOT) 68 U/L (14-36); Albumin 3.6 g/dl (3.5-5.0); Alkaline Phosphatase 152 U/L (38-126); Blood Urea Nitrogen 10 mg/dl (7-17); Calcium 8.6 mg/dl (8.4-10.2); Carbon Dioxide 27 mmol/L (22-30); Chloride 106 mmol/L (98-107); Estimated Creatinine Clearance 84 ml/min; Glucose 196 mg/dl (70-99); Potassium 4.6 mmol/L (3.5-5.1); Sodium 138 mmol/L (135-145); Total Protein 6.0 g/dl (6.3-8.2); eGFR > 60.00
--- NOTE | 2025-06-11 09:43 | W.PN.GS2 ---
Today's Communication / Plan
-
dispo planning
Assessment / Plan
-
60 yo female presenting with choledocholithiasis
PPD #2 ERCP
POD #1 Lap jose enrique
AFVSS
Tolerating LFD
No leukocytosis, bilirubin normal, resolving transaminitis
Plan:
Continue LFD
Analgesics prn
No need for further abx
Ok for discharge from surgical standpoint
Subjective Data
-
Date of Service: June 11, 2025
Pt seen and examined at bedside with Dr. Kent. Denies n/v. Tolerating diet. Some incisional soreness. Eager to go home.
Objective Data
-
Intake and Output
06/10/25 06/11/25 06/12/25
06:59 06:59 06:59
Intake Total 480 / 480 2100 / 2100
Balance 480 / 480 2100 / 2100
Intake:
Oral fluids 480 / 480
IV fluids (Total) 1950 / 1950
Normosol 100 / 100
IV piggybacks 150 / 150
Other:
Number of approximated MODERATE 1 3 1
amounts of urine
Vital Signs
Temp Pulse Resp BP Pulse Ox
97.8 F 73 18 133/75 98
06/11/25 07:30 06/11/25 07:30 06/11/25 07:30 06/11/25 07:30 06/11/25 09:01
Lab Results
06/11/25 05:48
06/11/25 05:48
Calcium 8.6 mg/dl (8.4-10.2) 06/11/25 05:48
Total Bilirubin 0.7 mg/dl (0.2-1.3) 06/11/25 05:48
AST 68 U/L (14-36) H 06/11/25 05:48
ALT 323 U/L (0-35) H 06/11/25 05:48
Alkaline Phosphatase 152 U/L (38-126) H 06/11/25 05:48
Total Protein 6.0 g/dl (6.3-8.2) L 06/11/25 05:48
Albumin 3.6 g/dl (3.5-5.0) 06/11/25 05:48
Physical Exam
-
NAD
ABD nd, mild incisional tenderness, nd
Incisions well approximated with intact glue
--- NOTE | 2025-06-11 10:44 | W.PN.HOSP.TC ---
Today's Communication/Plan
-
dc home
Assessment / Plan
Assessment / Plan
Physical Exam
General: No acute distress, appears comfortable at this time
HEENT: NormoCephalic, Moist mucous membranes and Atraumatic
Respiratory: Clear
Cardiac: S1/S2 and Regular Rhythm; No Murmur or Rub
GI: Soft, Non Tender, Non Distended and Normal Bowel Sounds; No Organomegaly, surgical scar noted.
Musculoskeletal: No Clubbing, No Cyanosis and No Edema
Skin: No Rash
Neuro: AO x 3 conversant coherent
Psych: Calm
60F prediabetes obesity p/w severe abd pain RUQ radiating to back started after eating with associate nausea vomiting. Abd US concerning for biliary obstruction Cholelithiasis.
# Symptomatic cholelithiasis/choledocholithiasis
-transaminitis improving
-iv Zosyn for now
-Status post EUS/ERCP with biliary sphincterotomy and stone extraction on 06/09/2025
-Dilaudid prn for pain, Zofran prn for n/v
-s/p lap jose enrique. No further need of abx per surgery.
Prediabetes
DVT prophylaxis
-Lovenox
CODE status
-full code
d/w with surgery-okay for dc.
More than 30 minutes spent in discharge including
Final examination of the patient
Summarizing hospital stay
Instructions for continuing care to all relevant caregivers
Preparation of discharge records, prescriptions, and referral forms
Total time spent (in minutes): 53
Anticipated Discharge: Today
Subjective/Interval History
-
Date of Service: June 11, 2025
denies abd pain
Objective Data
-
Labs:
Laboratory Results
06/11/25
05:48
WBC 6.0
Hgb 13.2
Hct 39.0
Plt Count 249
Sodium 138
Potassium 4.6
Chloride 106
Carbon Dioxide 27
BUN 10
Creatinine 0.8
Glucose 196 H
Calcium 8.6
Total Bilirubin 0.7
AST 68 H
ALT 323 H
Alkaline Phosphatase 152 H
Vital Signs:
Vital Signs
Temp Pulse Resp BP Pulse Ox
97.8 F 73 18 133/75 98
06/11/25 07:30 06/11/25 07:30 06/11/25 07:30 06/11/25 07:30 06/11/25 09:01
I&O
06/10/25 06/11/25 06/12/25
06:59 06:59 06:59
Intake Total 480 / 480 2099 50 / 50
Balance 480 / 480 2099 50 / 50
--- NOTE | 2025-06-11 10:45 | W.DCSUMMARY ---
Discharge Summary
Discharge Data
Date of Admission: 06/08/25
Date of Discharge: 06/11/25
-
Pending Results: No
Hospital Course
60-year-old female who presented with complaints of abdominal pain. Patient underwent abdominal ultrasound which showed gallstones with gallbladder wall thickening and also with severe intra and extrahepatic biliary dilatation which likely send
obstructing choledocholithiasis. GI and surgery was consulted. Patient underwent EUS ERCP status post biliary sphincterotomy and stone extraction on 06/09/2025. Patient was kept n.p.o. and IV fluids and also started on IV antibiotics. General
surgery evaluated the patient. Patient underwent laparoscopic cholecystectomy. Postop patient did well. IV fluids were discontinued. Antibiotics were not further needed. LFTs down trended. Per surgery patient can be started on low-fat diet.
Patient be discharged home with recommendation to follow-up outpatient with surgery.
Discharge Plan
-
Patient Disposition: Home (Routine Discharge)
Discharge Diagnosis/Procedures: Laparoscopic cholecystectomy and ERCP
Condition: Good
Diet: Regular and Low Fat
Additional Diets: Issues with bloating or diarrhea follow a low-fat diet
Activity: No strenuous activity
Additional Activity: No heavy lifting (>20 lbs) or strenuous activities for 2 to 3 weeks postoperatively
Driving Restrictions: No driving if too sore or taking narcotics
Bathing Restrictions: OK to Shower
Blood Work: CMP in 1 week via primary doctor.
Wound Care: Keep incisions clean and dry. Glue will flake off in 2 to 3 weeks. Stitches will dissolve. Use ice to the abdomen to reduce any bruising or swelling.
Activity Restrictions/Additional Instructions:
Call for fevers (>100.5), nausea or vomiting, worsening abdominal pain
Referrals:
Ravin Torres MD [Active, Surgical] - in two to four weeks
Shila Thomas DO [Active, Gastroenterology]
Referral Note: follow up post procedure and review for fatty liver noted on ultrasound
Jesus Manuel Thompson DO [Family Provider, Internal Medicine] - in less than 1 week
Prescriptions:
New
acetaminophen [acetaminophen] 325 mg tablet
650 mg PO Q4HPRN PRN (Reason: mild pain) Qty: 1 0RF
ibuprofen 200 mg tablet
400 - 600 mg PO Q6HPRN PRN (Reason: moderate pain) Qty: 1 0RF
oxycodone 5 mg tablet
5 mg PO Q4HPRN PRN (Reason: breakthrough/severe pain) Qty: 10 0RF
Discharge Orders:
Discharge Patient (As Directed); Ordered 06/11/25
Ordered By: Gary Murphy
Discharge Date and Time
Discharge Date/Time: 06/11/25 12:46
Print Language: [place] ISLAND[place]
--- NOTE | 2025-06-11 11:23 | CM ---
Met with patient at bedside; she reported that will provide transport home
Plan: discharge to home; no needs
[2025-06-11 11:25] VITALS: BP 141/80
== END 2025-06-11 12:46 | disposition home or self-care (01) | DRG 419 ==
LOC: 2 SOUTH 23:13
PROVIDERS: Emergency Medicine; Internal Medicine Gastroenterology; Physician Assistant; Radiology Diagnostic Radiology; Registered Nurse; ADMITTING PHYSICIAN Hospitalist; ATTENDING PHYSICIAN Hospitalist; CONSULT PHYSICIAN Surgery; EMERGENCY PHYSICIAN Emergency Medicine; FAMILY PHYSICIAN Family Medicine; OTHER PHYSICIAN Internal Medicine
PROC: 0FC98ZZ Extirpation of Matter from Common Bile Duct, Via Natural or Artificial Opening Endoscopic (ICD-10-PCS; 2025-06-09)
PROC: BF101ZZ Fluoroscopy of Bile Ducts using Low Osmolar Contrast (ICD-10-PCS; 2025-06-09)
PROC: 0DJ08ZZ Inspection of Upper Intestinal Tract, Via Natural or Artificial Opening Endoscopic (ICD-10-PCS; 2025-06-09)
PROC: 0FT44ZZ Resection of Gallbladder, Percutaneous Endoscopic Approach (ICD-10-PCS; 2025-06-10)
PROC: BF131ZZ Fluoroscopy of Gallbladder and Bile Ducts using Low Osmolar Contrast (ICD-10-PCS; 2025-06-10)
DX: K80.71 Calculus of gallbladder and bile duct without cholecystitis with obstruction (principal); K59.00 Constipation, unspecified; F41.9 Anxiety disorder, unspecified; K76.0 Fatty (change of) liver, not elsewhere classified; E11.9 Type 2 diabetes mellitus without complications; F17.200 Nicotine dependence, unspecified, uncomplicated; K86.9 Disease of pancreas, unspecified; K82.8 Other specified diseases of gallbladder; E66.9 Obesity, unspecified; Z68.30 Body mass index [BMI] 30.0-30.9, adult; Z79.85 Long-term (current) use of injectable non-insulin antidiabetic drugs; Z90.710 Acquired absence of both cervix and uterus
CPT/HCPCS: 74300; 74330; 76000; 76700; 80053; 81003; 81015; 83690; 85025; 85027; 85610; 87086; 88304; 99285; A4300; C1769